=== PATIENT | male | born 1965 | race Caucasian/White ===

== ENCOUNTER 2018-06-25 10:09 | Emergency (ER) | payer OTHER ==
[~2018-06-25] VITALS: Ht 172.7 cm; Wt 81.7 kg
[~2018-06-25 10:09] MED LIST: ALBU90OI INH; BUSP5 PO; Bactrim Ds Tab1 EACH PO; Effexor Xr150 MG PO; Keflex500 MG PO; MIRT15ST; NAPR500EC; Prednisone20 MG PO; Ultram50 MG PO; VENL25 PO
[2018-06-25] MEDS ORDERED: ESCI20 PO (10:23)
[2018-06-25] MEDS ORDERED: ZOLP5 PO (10:23)
[2018-06-25] MEDS ORDERED: BANOPHEN PO (10:24)
[2018-06-25] MEDS ORDERED: KETO10 PO (11:28)
[2018-06-25] MEDS ORDERED: Ultram50 MG PO (11:28)
[2018-06-25] MEDS ORDERED: Robaxin-750750 MG PO (11:28)
== END 2018-06-25 11:35 | disposition home or self-care (01) ==
LOC: ER 10:09
DX: M62.830 Muscle spasm of back (principal); Z79.899 Other long term (current) drug therapy; F32.9 Major depressive disorder, single episode, unspecified; F41.9 Anxiety disorder, unspecified; F17.210 Nicotine dependence, cigarettes, uncomplicated
CPT/HCPCS: 72040; 73030; 96372; 99283-25; J1885

== ENCOUNTER 2018-11-15 15:19 | Emergency (ER) | payer OTHER ==
[~2018-11-15] VITALS: Ht 172.7 cm; Wt 78.0 kg
[~2018-11-15 15:19] MED LIST changes: +BANOPHEN PO; +ESCI20 PO; +KETO10 PO; +Robaxin-750750 MG PO; +ZOLP5 PO
[2018-11-15] MEDS ORDERED: AMLO10 PO (15:24)
[2018-11-15] MEDS ORDERED: VENL37.5 (15:24)
[2018-11-15] MEDS ORDERED: Norco 5-325 Ta1 EACH PO (16:28)
== END 2018-11-15 16:41 | disposition home or self-care (01) ==
LOC: ER 15:19
DX: S62.142A Displaced fracture of body of hamate [unciform] bone, left wrist, initial encounter for closed fracture (principal); F41.9 Anxiety disorder, unspecified; F32.9 Major depressive disorder, single episode, unspecified; Z79.899 Other long term (current) drug therapy; F17.210 Nicotine dependence, cigarettes, uncomplicated; W07.XXXA Fall from chair, initial encounter
CPT/HCPCS: 29125; 73110; 99283-25; A9270-GY

== ENCOUNTER 2020-07-19 11:20 | Emergency (ER) | payer OTHER ==
[~2020-07-19] VITALS: Ht 172.7 cm; Wt 88.5 kg
[~2020-07-19 11:20] MED LIST changes: +AMLO10 PO; +Norco 5-325 Ta1 EACH PO; +VENL37.5
[2020-07-19 11:57] LABS: BASOPHILS ABSOLUTE AUTO 0.05 K/mm3 (0.00-0.23); BASOPHILS PERCENT AUTO 1 % (0-2); EOSINOPHILS PERCENT AUTO 2 % (0-6); Hematocrit 42.8 % (37.0-53.0); Hemoglobin 14.7 g/dL (13.5-17.5); IMMATURE GRAN ABSOLUTE AUTO 0.02 K/mm3 (0.00-0.10); IMMATURE GRAN PERCENT AUTO 0 % (0-1); LYMPHOCYTES ABSOLUTE AUTO 1.02 K/mm3 (0.84-5.20); LYMPHOCYTES PERCENT AUTO 17 % (21-46); MONOCYTES ABSOLUTE AUTO 0.74 K/mm3 (0.16-1.47); MONOCYTES PERCENT AUTO 12 % (4-13); Mean Corpuscular HGB Conc 34.3 g/dL (31.5-36.5); Mean Corpuscular Volume 99 fL (80-100); Mean Platelet Volume 9.4 fL (9.1-12.4); NEUTROPHILS ABSOLUTE AUTO 4.09 K/mm3 (1.96-9.15); NEUTROPHILS PERCENT AUTO 68 % (41-73); Platelet Count 181 K/mm3 (150-400); RDW Coefficient Variation 12.3 % (11.7-14.2); RDW Standard Deviation 44.7 fL (35.1-46.3); Red Blood Cell Count 4.32 M/mm3 (4.30-5.90); White Blood Cell Count 6.02 K/mm3 (4.00-11.30)
[2020-07-19 12:16] LABS: Alanine Aminotransfer (ALT/SGP 75 U/L (12-78); Albumin, Blood 3.5 g/dL (3.4-5.0); Albumin/Globulin Ratio 0.7 (0.8-1.8); Alk Phos 100 U/L (50-136); Anion Gap 7 mmol/L (6-16); Aspartate Aminotrans (AST/SGOT 72 U/L (12-37); Bilirubin, Total 0.9 mg/dL (0.1-1.0); Blood Urea Nitrogen 8 mg/dL (8-24); Bun/Creatinine Ratio 10.6 (12.0-20.0); CO2, Blood 24 mmol/L (21-32); Chloride, Blood 101 mmol/L (98-108); Creatinine, Blood 0.75 mg/dL (0.60-1.20); Glomerular Filtration Rate >60 (60-); Glucose, Blood 290 mg/dL (70-99); Potassium, Blood 4.2 mmol/L (3.5-5.5); Sodium, Blood 132 mmol/L (136-145); Total Protein, Blood 8.5 g/dL (6.4-8.2)
[2020-07-19] MEDS ORDERED: CEPH500 PO (13:58)
== END 2020-07-19 14:13 | disposition home or self-care (01) ==
LOC: ER 11:20
PROVIDERS: Emergency Medicine
DX: L03.116 Cellulitis of left lower limb (principal); L03.115 Cellulitis of right lower limb; L97.829 Non-pressure chronic ulcer of other part of left lower leg with unspecified severity; F17.210 Nicotine dependence, cigarettes, uncomplicated; Z79.899 Other long term (current) drug therapy
CPT/HCPCS: 36415; 80053; 83036; 83605; 85025; 96365; 99283-25; J0690; J7030

== ENCOUNTER 2020-08-03 11:31 | Inpatient (IN) | payer OTHER ==
[~2020-08-03] VITALS: Ht 172.7 cm; Wt 91.0 kg
[~2020-08-03 11:31] MED LIST changes: +CEPH500 PO; -VENL37.5; +VENL75ER PO
[2020-08-03 12:57] LABS: BASOPHILS ABSOLUTE AUTO 0.03 K/mm3 (0.00-0.23); BASOPHILS PERCENT AUTO 1 % (0-2); EOSINOPHILS ABSOLUTE AUTO 0.04 K/mm3 (0.00-0.68); EOSINOPHILS PERCENT AUTO 1 % (0-6); Hematocrit 40.8 % (37.0-53.0); IMMATURE GRAN ABSOLUTE AUTO 0.02 K/mm3 (0.00-0.10); IMMATURE GRAN PERCENT AUTO 1 % (0-1); LYMPHOCYTES ABSOLUTE AUTO 0.73 K/mm3 (0.84-5.20); LYMPHOCYTES PERCENT AUTO 17 % (21-46); MONOCYTES ABSOLUTE AUTO 0.38 K/mm3 (0.16-1.47); MONOCYTES PERCENT AUTO 9 % (4-13); Mean Corpuscular HGB 33.1 pg (26.0-34.0); Mean Corpuscular HGB Conc 34.3 g/dL (31.5-36.5); Mean Corpuscular Volume 97 fL (80-100); Mean Platelet Volume 8.9 fL (9.1-12.4); NEUTROPHILS ABSOLUTE AUTO 3.04 K/mm3 (1.96-9.15); NEUTROPHILS PERCENT AUTO 72 % (41-73); Platelet Count 186 K/mm3 (150-400); RDW Coefficient Variation 12.2 % (11.7-14.2); RDW Standard Deviation 43.1 fL (35.1-46.3); Red Blood Cell Count 4.23 M/mm3 (4.30-5.90); White Blood Cell Count 4.24 K/mm3 (4.00-11.30)
[2020-08-03 13:25] LABS: Alanine Aminotransfer (ALT/SGP 40 U/L (12-78); Albumin, Blood 3.4 g/dL (3.4-5.0); Albumin/Globulin Ratio 0.7 (0.8-1.8); Alk Phos 99 U/L (50-136); Anion Gap 6 mmol/L (6-16); Aspartate Aminotrans (AST/SGOT 38 U/L (12-37); Blood Urea Nitrogen 16 mg/dL (8-24); Bun/Creatinine Ratio 18.7 (12.0-20.0); CO2, Blood 30 mmol/L (21-32); Calcium, Blood 8.9 mg/dL (8.5-10.1); Chloride, Blood 94 mmol/L (98-108); Creatinine, Blood 0.86 mg/dL (0.60-1.20); Globulin, Blood 4.9 g/dL (2.2-4.0); Glomerular Filtration Rate >60 (60-); Glucose, Blood 204 mg/dL (70-99); Potassium, Blood 3.5 mmol/L (3.5-5.5); Sodium, Blood 130 mmol/L (136-145); Total Protein, Blood 8.3 g/dL (6.4-8.2)
[2020-08-03] MEDS ORDERED: ZOLPIDEM TARTRA10 MG PO (14:08)
[2020-08-03] MEDS ORDERED: Ventolin/Prove6.7 GM INH (14:09)
[2020-08-03] MEDS ORDERED: OLANZAPINE PO (14:10)
[2020-08-03] MEDS ORDERED: IBU800 M1 PO (14:11)
[2020-08-03] MEDS ORDERED: CYCL10 PO (15:11)
--- NOTE | 2020-08-03 15:32 | NUR ---
SBAR REPORT FROM TARIQ BENITEZ RN. ROOM NOT YET CLEAN.
[2020-08-03 18:15] LABS: U Amphetamine Screen Not Detected; U Barbituate Screen Not Detected; U Benzodiazapine Screen Not Detected; U Buprenorphine Screen Not Detected; U Cannabinoids Screen Not Detected; U Cocaine Screen Not Detected; U Methadone Screen Not Detected; U Methamphetamine Screen Not Detected; U Opiates Screen DETECTED; U Oxycodone Screen Not Detected; U Phencyclidine Screen Not Detected; U Propoxyphene Screen Not Detected
--- NOTE | 2020-08-03 22:02 | NUR ---
ASSUMED CARE: AOX3, INDEPENDENT. LUNG SOUNDS CLEAR. HR SINUS. NO PAIN AT THIS TIME. NO NAUSEA. DRESSING TO BILATERAL SHINS IS CDI. VSS/AFEBRILE. IVF INFUSING. MEDICATED PER EMAR. FAIR APPETITE. STATES HE DOES GET SHOOTING PAIN FROM THE WOUNDS AT NIGHT THAT SOMETIMES KEEPS HIM AWAKE. ADMINISTERED INSULIN FOR BLOOD SUGAR IN THE HIGH 100'S. WILL CONTINUE TO MONITOR, CALL LIGHT IN REACH.
--- NOTE | 2020-08-04 06:22 | NUR ---
SHIFT SUMMARY: AOX3, INDEPENDENT. PAIN TO BLE R/T WOUNDS ON ANTERIOR CALFS. DRESSINGS REMAINED INTACT AND CLEAN. BS 190, MEDICATED WITH INSULIN. IVF INFUSED T/O NIGHT. SURGICAL CONSULT CALLED INTO DR. AVERY PER ANSWERING SERVICE. NO NAUSEA. VSS/AFEBRILE. 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 DOES GET SHOOTING THROBBING PAIN OFF AND ON. SLEPT WELL T/O NIGHT. CULTURES ON WOUND AND MRSA SWAB STILL PENDING. CIWA AVERAGE 1-2 WITH JUST SMALL AMOUNTS OF TREMORS. WILL REPORT TO DAYSHIFT. CALL LIGHT IN REACH.
[2020-08-04 06:59] LABS: BASOPHILS ABSOLUTE AUTO 0.04 K/mm3 (0.00-0.23); BASOPHILS PERCENT AUTO 1 % (0-2); EOSINOPHILS ABSOLUTE AUTO 0.12 K/mm3 (0.00-0.68); EOSINOPHILS PERCENT AUTO 3 % (0-6); Hemoglobin 13.2 g/dL (13.5-17.5); IMMATURE GRAN ABSOLUTE AUTO 0.02 K/mm3 (0.00-0.10); IMMATURE GRAN PERCENT AUTO 0 % (0-1); LYMPHOCYTES ABSOLUTE AUTO 0.97 K/mm3 (0.84-5.20); LYMPHOCYTES PERCENT AUTO 22 % (21-46); MONOCYTES ABSOLUTE AUTO 0.42 K/mm3 (0.16-1.47); MONOCYTES PERCENT AUTO 9 % (4-13); Mean Corpuscular HGB 32.7 pg (26.0-34.0); Mean Corpuscular Volume 99 fL (80-100); Mean Platelet Volume 9.4 fL (9.1-12.4); NEUTROPHILS PERCENT AUTO 65 % (41-73); Platelet Count 176 K/mm3 (150-400); RDW Coefficient Variation 12.3 % (11.7-14.2); RDW Standard Deviation 44.7 fL (35.1-46.3); Red Blood Cell Count 4.04 M/mm3 (4.30-5.90); White Blood Cell Count 4.47 K/mm3 (4.00-11.30)
[2020-08-04 07:50] LABS: Alanine Aminotransfer (ALT/SGP 37 U/L (12-78); Albumin, Blood 3.1 g/dL (3.4-5.0); Albumin/Globulin Ratio 0.7 (0.8-1.8); Alk Phos 88 U/L (50-136); Anion Gap 7 mmol/L (6-16); Aspartate Aminotrans (AST/SGOT 34 U/L (12-37); Bilirubin, Total 0.7 mg/dL (0.1-1.0); Blood Urea Nitrogen 15 mg/dL (8-24); Bun/Creatinine Ratio 18.2 (12.0-20.0); CO2, Blood 25 mmol/L (21-32); Calcium, Blood 8.5 mg/dL (8.5-10.1); Chloride, Blood 101 mmol/L (98-108); Creatinine, Blood 0.83 mg/dL (0.60-1.20); Globulin, Blood 4.4 g/dL (2.2-4.0); Glomerular Filtration Rate >60 (60-); Glucose, Blood 168 mg/dL (70-99); Magnesium, Blood 1.9 mg/dL (1.6-2.4); Potassium, Blood 3.9 mmol/L (3.5-5.5); Sodium, Blood 133 mmol/L (136-145); Total Protein, Blood 7.5 g/dL (6.4-8.2)
[2020-08-04 11:30] LABS: SARS-Cov-2 (COVID-19) PCR, MMC NEGATIVE (NEGATIVE)
--- NOTE | 2020-08-04 15:11 | NUR ---
History, Chart, Medications and Allergies reviewed before start of procedure. Lungs clear T/O to Auscultation. Pre-Op teaching done. Pt verbalizes understanding. PT BEEN NPO SINCE 0800. SURGEON AND ANESTHESIOLOGIST NOTIFIED.
--- NOTE | 2020-08-04 18:25 | NUR ---
SHIFT SUMMARY PT AOX4; CALLS APPROPRIATELY. PT HAD A DEBRIBEMENT OF HIS BLE AFTER LUNCH TIME. PT VERY PAINFUL; MEDICATED PER EMAR. PT REFUSED TO PUT BACK THE FLUID/NS THIS AFTERNOON AND REFUSED FOR A NEW IV THIS AM. ENCOURAGE FLUIDS PO. BED IS IN THE LOWEST POSITION AND CALL LIGHT WITHIN REACH
--- NOTE | 2020-08-05 04:55 | NUR ---
SHIFT SUMMARY PT VERY PAINFUL AT START OF SHIFT. STATING THAT HIS BLE'S ALSO FELT VERY "STIFF". MEDICATED W/ PERCOCET 2 TABS WITH GOOD EFFECT. DRESSINGS TO BLE'S REMAINED C/D/I THROUGHOUT THE NIGHT. PT SLEPT MOST OF THE NIGHT. ONLY GETTING UP TO VOID. PT AFEBRILE. VSS. NO ACUTE CHANGES THIS SHIFT. WILL CONTINUE TO MONITOR.
[2020-08-05 05:45] LABS: BASOPHILS ABSOLUTE AUTO 0.04 K/mm3 (0.00-0.23); BASOPHILS PERCENT AUTO 1 % (0-2); EOSINOPHILS ABSOLUTE AUTO 0.13 K/mm3 (0.00-0.68); EOSINOPHILS PERCENT AUTO 4 % (0-6); Hematocrit 38.4 % (37.0-53.0); Hemoglobin 12.9 g/dL (13.5-17.5); IMMATURE GRAN ABSOLUTE AUTO 0.01 K/mm3 (0.00-0.10); IMMATURE GRAN PERCENT AUTO 0 % (0-1); LYMPHOCYTES ABSOLUTE AUTO 0.88 K/mm3 (0.84-5.20); LYMPHOCYTES PERCENT AUTO 24 % (21-46); MONOCYTES ABSOLUTE AUTO 0.39 K/mm3 (0.16-1.47); MONOCYTES PERCENT AUTO 11 % (4-13); Mean Corpuscular HGB 32.9 pg (26.0-34.0); Mean Corpuscular HGB Conc 33.6 g/dL (31.5-36.5); Mean Corpuscular Volume 98 fL (80-100); Mean Platelet Volume 9.3 fL (9.1-12.4); NEUTROPHILS ABSOLUTE AUTO 2.15 K/mm3 (1.96-9.15); NEUTROPHILS PERCENT AUTO 60 % (41-73); Platelet Count 156 K/mm3 (150-400); RDW Coefficient Variation 12.3 % (11.7-14.2); Red Blood Cell Count 3.92 M/mm3 (4.30-5.90)
[2020-08-05 06:06] LABS: Anion Gap 6 mmol/L (6-16); Blood Urea Nitrogen 12 mg/dL (8-24); Bun/Creatinine Ratio 14.1 (12.0-20.0); CO2, Blood 27 mmol/L (21-32); Calcium, Blood 8.7 mg/dL (8.5-10.1); Chloride, Blood 104 mmol/L (98-108); Creatinine, Blood 0.85 mg/dL (0.60-1.20); Glomerular Filtration Rate >60 (60-); Glucose, Blood 133 mg/dL (70-99); Potassium, Blood 3.8 mmol/L (3.5-5.5); Sodium, Blood 137 mmol/L (136-145)
[2020-08-05] MEDS ORDERED: METF500 PO (14:21)
[2020-08-05] MEDS ORDERED: OXYACE7.5T PO (14:22)
[2020-08-05] MEDS ORDERED: VISBIOME 112.51 EACH PO (14:23)
[2020-08-05] MEDS ORDERED: BASAGLAR K100 UNIT/1 SC (14:25)
[2020-08-05] MEDS ORDERED: CLIN150 PO (14:28)
[2020-08-05] MEDS ORDERED: Acetaminophen325 M1 PO (14:31)
--- NOTE | 2020-08-05 16:52 | NUR ---
PT AAOX4. PLEASANT AND COOPERATIVE WITH CARE. PAIN TO BLE SURGICAL SITE WELL CONTROLLED WITH PAIN REGIMEN. BL DRESSING CHANGED EXTRA DRESSING SENT HOME WITH PT ON DC. IV REMOVED ON DC WNL. NEW MEDICATIONS APPT AND DISCHARGE INSTUCTIONS REVIEWED WITH PT. DM EDUCATION REINFORCED. PT IS ABLE TO TEACH BACK INSULIN ADMINISTRATION AND SITES. WOUND CARE INSTUCTIONS REVIEWED PT ABLE TO TEACH BACK. S/S OF WORSTENING INFECTION AND WHEN TO SEEK HELP REVIEWED. PT VERBAIZED UNDERSTANDING. PT DISCHARGED TO HOME
== END 2020-08-05 16:12 | disposition home or self-care (01) | DRG 622 ==
LOC: ER 11:31 → MEDS 11:32
PROVIDERS: Nurse Practitioner Acute Care; Physician Assistant; Surgery; ADMIT Internal Medicine
PROC: 0JBN0ZZ Excision of Right Lower Leg Subcutaneous Tissue and Fascia, Open Approach (ICD-10-PCS; 2020-08-04)
PROC: 0JBP0ZZ Excision of Left Lower Leg Subcutaneous Tissue and Fascia, Open Approach (ICD-10-PCS; principal; 2020-08-04 16:00)
DX: E11.628 Type 2 diabetes mellitus with other skin complications (principal); L89.893 Pressure ulcer of other site, stage 3; L03.115 Cellulitis of right lower limb; L03.116 Cellulitis of left lower limb; I10 Essential (primary) hypertension; Z20.822 Contact with and (suspected) exposure to COVID-19; E11.9 Type 2 diabetes mellitus without complications; F41.9 Anxiety disorder, unspecified; F32.9 Major depressive disorder, single episode, unspecified; F10.20 Alcohol dependence, uncomplicated; B95.62 Methicillin resistant Staphylococcus aureus infection as the cause of diseases classified elsewhere; F17.210 Nicotine dependence, cigarettes, uncomplicated; Z79.899 Other long term (current) drug therapy; B19.20 Unspecified viral hepatitis C without hepatic coma
CPT/HCPCS: 36415; 80048; 80053; 82947; 83735; 84443; 85025; 87040; 87070; 87075; 87077; 87147; 87186; 87205; 93005; 93010; 93922; 94760; 96365; 96375; 97161; 97166; 97535; 99285-25; A9270; G0378; G0463; J0690; J1170; J1644; J2250; J2405; J2550; J2704; J3010; J3370; J3475; J7030; J7050; J7120; U0004

== ENCOUNTER 2020-08-10 03:37 | Day surgery (SDC) | payer OTHER ==
[~2020-08-10 03:37] MED LIST changes: +Acetaminophen325 M1 PO; +BASAGLAR K100 UNIT/1 SC; +CLIN150 PO; +CYCL10 PO; +IBU800 M1 PO; +METF500 PO; +OLANZAPINE PO; +OXYACE7.5T PO; +VISBIOME 112.51 EACH PO; +Ventolin/Prove6.7 GM INH; +ZOLPIDEM TARTRA10 MG PO
== END 2020-08-10 23:08 | disposition home or self-care (01) ==
LOC: WOUND 03:37
DX: S81.801D Unspecified open wound, right lower leg, subsequent encounter (principal); S81.802D Unspecified open wound, left lower leg, subsequent encounter; X58.XXXD Exposure to other specified factors, subsequent encounter; E11.622 Type 2 diabetes mellitus with other skin ulcer; L97.212 Non-pressure chronic ulcer of right calf with fat layer exposed; L97.222 Non-pressure chronic ulcer of left calf with fat layer exposed; L03.116 Cellulitis of left lower limb; L03.115 Cellulitis of right lower limb; F17.290 Nicotine dependence, other tobacco product, uncomplicated; B18.2 Chronic viral hepatitis C
CPT/HCPCS: G0463

== ENCOUNTER 2020-08-17 03:05 | Day surgery (SDC) | payer OTHER | END 2020-08-17 23:16 | disposition home or self-care (01) | LOC: WOUND 03:05 | DX: S81.801D Unspecified open wound, right lower leg, subsequent encounter (principal); S81.802D Unspecified open wound, left lower leg, subsequent encounter; X58.XXXD Exposure to other specified factors, subsequent encounter; E11.622 Type 2 diabetes mellitus with other skin ulcer; L97.212 Non-pressure chronic ulcer of right calf with fat layer exposed; L97.222 Non-pressure chronic ulcer of left calf with fat layer exposed; L03.116 Cellulitis of left lower limb; L03.115 Cellulitis of right lower limb; B18.2 Chronic viral hepatitis C; F17.290 Nicotine dependence, other tobacco product, uncomplicated | CPT/HCPCS: A9270; G0463 ==

== ENCOUNTER 2020-08-31 02:20 | Day surgery (SDC) | payer OTHER | END 2020-08-31 22:54 | disposition home or self-care (01) | LOC: WOUND 02:20 | DX: S81.801D Unspecified open wound, right lower leg, subsequent encounter (principal); S81.802D Unspecified open wound, left lower leg, subsequent encounter; X58.XXXD Exposure to other specified factors, subsequent encounter; E11.622 Type 2 diabetes mellitus with other skin ulcer; L97.212 Non-pressure chronic ulcer of right calf with fat layer exposed; L97.222 Non-pressure chronic ulcer of left calf with fat layer exposed; L03.116 Cellulitis of left lower limb; L03.115 Cellulitis of right lower limb; B18.2 Chronic viral hepatitis C; F17.290 Nicotine dependence, other tobacco product, uncomplicated | CPT/HCPCS: A9270; G0463 ==

== ENCOUNTER 2020-09-14 04:43 | Day surgery (SDC) | payer OTHER | END 2020-09-14 23:14 | disposition home or self-care (01) | LOC: WOUND 04:43 | DX: E11.622 Type 2 diabetes mellitus with other skin ulcer (principal); L97.212 Non-pressure chronic ulcer of right calf with fat layer exposed; L97.222 Non-pressure chronic ulcer of left calf with fat layer exposed; S81.801D Unspecified open wound, right lower leg, subsequent encounter; S81.802D Unspecified open wound, left lower leg, subsequent encounter; X58.XXXD Exposure to other specified factors, subsequent encounter; L03.116 Cellulitis of left lower limb; F17.290 Nicotine dependence, other tobacco product, uncomplicated; B18.2 Chronic viral hepatitis C; L03.115 Cellulitis of right lower limb | CPT/HCPCS: A9270; G0463 ==

== ENCOUNTER 2020-10-05 00:58 | Day surgery (SDC) | payer OTHER | END 2020-10-05 23:30 | disposition home or self-care (01) | LOC: WOUND 00:58 | DX: L03.115 Cellulitis of right lower limb (principal); L03.116 Cellulitis of left lower limb; S81.801D Unspecified open wound, right lower leg, subsequent encounter; S81.802D Unspecified open wound, left lower leg, subsequent encounter; X58.XXXD Exposure to other specified factors, subsequent encounter; E11.622 Type 2 diabetes mellitus with other skin ulcer; L97.212 Non-pressure chronic ulcer of right calf with fat layer exposed; L97.222 Non-pressure chronic ulcer of left calf with fat layer exposed; F17.290 Nicotine dependence, other tobacco product, uncomplicated; B18.2 Chronic viral hepatitis C | CPT/HCPCS: A9270 ==

== ENCOUNTER 2020-11-02 02:41 | Day surgery (SDC) | payer OTHER | END 2020-11-02 23:33 | disposition home or self-care (01) | LOC: WOUND 02:41 | DX: L03.115 Cellulitis of right lower limb (principal); L03.116 Cellulitis of left lower limb; E11.622 Type 2 diabetes mellitus with other skin ulcer; L97.212 Non-pressure chronic ulcer of right calf with fat layer exposed; L97.222 Non-pressure chronic ulcer of left calf with fat layer exposed; S81.801D Unspecified open wound, right lower leg, subsequent encounter; S81.802D Unspecified open wound, left lower leg, subsequent encounter; X58.XXXD Exposure to other specified factors, subsequent encounter; F17.290 Nicotine dependence, other tobacco product, uncomplicated; B18.2 Chronic viral hepatitis C | CPT/HCPCS: A9270; G0463 ==

== ENCOUNTER 2020-11-16 00:42 | Day surgery (SDC) | payer OTHER | END 2020-11-16 22:54 | disposition home or self-care (01) | LOC: WOUND 00:42 | DX: S81.801D Unspecified open wound, right lower leg, subsequent encounter (principal); S81.802D Unspecified open wound, left lower leg, subsequent encounter; W01.0XXD Fall on same level from slipping, tripping and stumbling without subsequent striking against object, subsequent encounter; E11.9 Type 2 diabetes mellitus without complications; B18.2 Chronic viral hepatitis C; F17.290 Nicotine dependence, other tobacco product, uncomplicated | CPT/HCPCS: A9270; G0463 ==

== ENCOUNTER → 2020-12-17 | Outpatient (CLI) | payer OTHER | END | disposition home or self-care (01) | LOC: LAB SHORT 11:32 → LAB 11:32 | DX: N28.9 Disorder of kidney and ureter, unspecified (principal) | CPT/HCPCS: 82043 ==

== ENCOUNTER 2021-03-07 09:24 | Day surgery (SDC) | payer OTHER | END 2021-03-07 22:53 | disposition home or self-care (01) | LOC: WOUND 09:24 | DX: E11.622 Type 2 diabetes mellitus with other skin ulcer (principal); L97.812 Non-pressure chronic ulcer of other part of right lower leg with fat layer exposed; E11.621 Type 2 diabetes mellitus with foot ulcer; E11.59 Type 2 diabetes mellitus with other circulatory complications; F17.210 Nicotine dependence, cigarettes, uncomplicated | CPT/HCPCS: A9270 ==

== ENCOUNTER 2021-03-14 03:55 | Day surgery (SDC) | payer OTHER | END 2021-03-14 22:45 | disposition home or self-care (01) | LOC: WOUND 03:55 | DX: E11.621 Type 2 diabetes mellitus with foot ulcer (principal); L97.509 Non-pressure chronic ulcer of other part of unspecified foot with unspecified severity; E11.59 Type 2 diabetes mellitus with other circulatory complications; E11.51 Type 2 diabetes mellitus with diabetic peripheral angiopathy without gangrene | CPT/HCPCS: G0463 ==

== ENCOUNTER 2021-03-28 01:09 | Day surgery (SDC) | payer OTHER | END 2021-03-28 23:22 | disposition home or self-care (01) | LOC: WOUND 01:09 | DX: E11.622 Type 2 diabetes mellitus with other skin ulcer (principal); L97.812 Non-pressure chronic ulcer of other part of right lower leg with fat layer exposed; E11.59 Type 2 diabetes mellitus with other circulatory complications; I10 Essential (primary) hypertension | CPT/HCPCS: A9270; G0463 ==

== ENCOUNTER 2021-04-19 08:34 | Day surgery (SDC) | payer OTHER | END 2021-04-19 23:23 | disposition home or self-care (01) | LOC: WOUND 08:34 | DX: Z09 Encounter for follow-up examination after completed treatment for conditions other than malignant neoplasm (principal); E11.9 Type 2 diabetes mellitus without complications; Z86.31 Personal history of diabetic foot ulcer | CPT/HCPCS: A9270; G0463 ==

== ENCOUNTER 2022-01-08 01:51 | Emergency (ER) | payer OTHER ==
[~2022-01-08] VITALS: Ht 172.7 cm; Wt 86.2 kg
[2022-01-08] MEDS ORDERED: Prinivil10 MG PO (02:09)
[2022-01-08] MEDS ORDERED: TAMSULOSIN HCL0.4 M1 PO (02:10)
== END 2022-01-08 04:13 | disposition home or self-care (01) ==
LOC: ER 01:51
DX: U07.1 COVID-19 (principal); I10 Essential (primary) hypertension; E11.9 Type 2 diabetes mellitus without complications; J45.909 Unspecified asthma, uncomplicated; F17.210 Nicotine dependence, cigarettes, uncomplicated; Z79.899 Other long term (current) drug therapy; Z79.4 Long term (current) use of insulin
CPT/HCPCS: 71045; 99283-25; M0222

== ENCOUNTER 2022-02-12 11:46 | Emergency (ER) | payer OTHER ==
[~2022-02-12] VITALS: Ht 172.7 cm; Wt 81.7 kg
[~2022-02-12 11:46] MED LIST changes: +Prinivil10 MG PO; +TAMSULOSIN HCL0.4 M1 PO
[2022-02-13] MEDS ORDERED: DOXA4 PO (16:15)
[2022-02-13] MEDS ORDERED: MAVYRET 100-401 EAC1 PO (16:18)
== END 2022-02-12 13:02 | disposition home or self-care (01) ==
LOC: ER 11:46
DX: M25.552 Pain in left hip (principal); I10 Essential (primary) hypertension; E11.9 Type 2 diabetes mellitus without complications; F17.210 Nicotine dependence, cigarettes, uncomplicated; W10.9XXA Fall (on) (from) unspecified stairs and steps, initial encounter; Z79.899 Other long term (current) drug therapy; Z79.4 Long term (current) use of insulin
CPT/HCPCS: 73502

== ENCOUNTER 2022-02-13 11:42 | Inpatient (IN) | payer OTHER ==
[~2022-02-13] VITALS: Ht 172.7 cm; Wt 81.7 kg
[2022-02-13 13:12] LABS: BASOPHILS ABSOLUTE AUTO 0.03 K/mm3 (0.00-0.23); BASOPHILS PERCENT AUTO 1 % (0-2); EOSINOPHILS ABSOLUTE AUTO 0.05 K/mm3 (0.00-0.68); EOSINOPHILS PERCENT AUTO 1 % (0-6); Hematocrit 37.7 % (37.0-53.0); Hemoglobin 12.8 g/dL (13.5-17.5); IMMATURE GRAN ABSOLUTE AUTO 0.01 K/mm3 (0.00-0.10); IMMATURE GRAN PERCENT AUTO 0 % (0-1); LYMPHOCYTES ABSOLUTE AUTO 0.53 K/mm3 (0.84-5.20); LYMPHOCYTES PERCENT AUTO 11 % (21-46); MONOCYTES ABSOLUTE AUTO 0.29 K/mm3 (0.16-1.47); MONOCYTES PERCENT AUTO 6 % (4-13); Mean Corpuscular HGB 33.7 pg (26.0-34.0); Mean Corpuscular Volume 99 fL (80-100); NEUTROPHILS ABSOLUTE AUTO 3.86 K/mm3 (1.96-9.15); NEUTROPHILS PERCENT AUTO 81 % (41-73); Platelet Count 179 K/mm3 (150-400); RDW Coefficient Variation 12.9 % (11.7-14.2); RDW Standard Deviation 46.8 fL (35.1-46.3); White Blood Cell Count 4.77 K/mm3 (4.00-11.30)
[2022-02-13 13:31] LABS: Albumin, Blood 3.7 g/dL (3.4-5.0); Albumin/Globulin Ratio 0.8 (0.8-1.8); Bilirubin, Total 0.5 mg/dL (0.1-1.0); Bun/Creatinine Ratio 17.5 (12.0-20.0); Calcium, Blood 8.9 mg/dL (8.5-10.1); Creatinine, Blood 1.26 mg/dL (0.60-1.20); Globulin, Blood 4.5 g/dL (2.2-4.0); Potassium, Blood 4.4 mmol/L (3.5-5.5); Total Protein, Blood 8.2 g/dL (6.4-8.2)
[2022-02-13] MEDS ORDERED: DOXA4 PO (16:15)
[2022-02-13] MEDS ORDERED: MAVYRET 100-401 EAC1 PO (16:18)
--- NOTE | 2022-02-13 19:38 | NUR ---
SHIFT SUMMARY: PT A/O X 4 BEDREST, PLEASANT AND COOPERATIVE. PT HAD PAIN TO L HIP ON ARRIVAL AND OXYCODONE WAS NOT EFFECTIVE IN TREATING. ORDER WAS RECEIVED FOR FENTANYL 25 MCG Q4 PRN. HE RECEIVED ONE DOSE WHICH HE REPORTED WAS EFFECTIVE IN TREATING HIS PAIN AND HAS HAD NO FURTHER COMPLAINTS. PT EDUCATED ON HIP PRECAUTIONS HOWEVER HE HAS NOT BEEN COMPLIANT IN KEEPING LEG STRAIGHT. PT OFTEN FOUND WITH LEGS CROSSED OR LEGS DRAWN UP WITH KNEES BENT. PT DENIES DISCOMFORT FROM HAVING HIS LEG IN THESE POSITIONS. BLOOD SUGARS ARE WITHIN NORMAL LIMITS. PT TO BE NPO AT MIDNIGHT. DR. CLAY ROUNDED THIS EVENING AND PLANS TO DO A TOTAL HIP REPLACEMENT INSTEAD OF REPAIR. PT AWARE. PT CURRENTLY HAS IV NS RUNNING AT 75 ML/HOUR PER ORDER.
--- NOTE | 2022-02-14 07:34 | NUR ---
SHIFT SUMMARY A&O X 4. VSS. C/O PAIN 10/02. PAIN MANAGED WITH IV FENTANYL, TOLERATING WELL. PT HAD SANDWICH AND PUTTING BEFORE MIDNIGHT. PT THEN NPO AT MIDNIGHT. PT TO HAVE LEFT HIP SURGERY IN THE AM. ON BEDREST. WILL CONTINUE WITH PLAN OF CARE.
--- NOTE | 2022-02-14 12:20 | NUR ---
PT TRANSFERRED TO DAYSURGERY FROM FLOOR VIA BED. PT BELONGINGS LEFT IN ROOM EXCEPT CONTACT LENSES. CONTACT LENSES BROUGHT TO PACU FOR SAFEKEEPING.
--- NOTE | 2022-02-14 13:59 | NUR ---
PT TO GO TO ROOM 223 POST SURGERY. REPORT GIVEN TO CLEMENTE MONROE. PT BELONGINGS SENT TO PT NEW ROOM.
--- NOTE | 2022-02-14 16:45 | NUR ---
POST OP ARRIVED FROM PACU VIA BED, AWAKE BUT DROWSY, A&O X4, REPORTS HAVING SOME PAIN ON R HIP PT FELL BACK ASLEEP, LUNGS CLEAR T/O, DIM AT BASES, HRR, ACTIVE BT'S X4, DENIES ANY NUMBNESS OR TINGLING, L ANTERIOR HIP W/ AQUACEL DSG, C/D/I, ARLETTE'S AND PAS IN PLACE, CONT. TO MONITOR VS AND ANY CHANGES.
[2022-02-14] MEDS ORDERED: GABA300 PO (21:10)
--- NOTE | 2022-02-15 04:14 | NUR ---
SHIFT SUMMARY PT RESTED WELL T/O SHIFT. AQUACEL DRESSING TO LEFT HIP REMAINS CDI WITH POLAR PACK IN PLACE. 2 ROXICODONE/TYLENOL/TORADOL FOR PAIN MANAGEMENT. UP WITH 1 SBA USING FWW/GB TO BRP. PLAN FOR PT TO DISCHARGE HOME TODAY AFTER THERAPY. CALL LIGHT WITHIN REACH.
[2022-02-15 04:43] LABS: BASOPHILS ABSOLUTE AUTO 0.01 K/mm3 (0.00-0.23); BASOPHILS PERCENT AUTO 0 % (0-2); EOSINOPHILS PERCENT AUTO 0 % (0-6); Hematocrit 29.7 % (37.0-53.0); Hemoglobin 9.6 g/dL (13.5-17.5); IMMATURE GRAN ABSOLUTE AUTO 0.03 K/mm3 (0.00-0.10); IMMATURE GRAN PERCENT AUTO 0 % (0-1); LYMPHOCYTES PERCENT AUTO 4 % (21-46); MONOCYTES ABSOLUTE AUTO 0.34 K/mm3 (0.16-1.47); MONOCYTES PERCENT AUTO 4 % (4-13); Mean Corpuscular HGB 32.5 pg (26.0-34.0); Mean Corpuscular HGB Conc 32.3 g/dL (31.5-36.5); Mean Corpuscular Volume 101 fL (80-100); Mean Platelet Volume 9.4 fL (9.1-12.4); NEUTROPHILS ABSOLUTE AUTO 7.37 K/mm3 (1.96-9.15); NEUTROPHILS PERCENT AUTO 92 % (41-73); Platelet Count 153 K/mm3 (150-400); RDW Coefficient Variation 12.6 % (11.7-14.2); RDW Standard Deviation 46.1 fL (35.1-46.3); Red Blood Cell Count 2.95 M/mm3 (4.30-5.90); White Blood Cell Count 8.05 K/mm3 (4.00-11.30)
[2022-02-15 05:04] LABS: Bun/Creatinine Ratio 24.2 (12.0-20.0); Calcium, Blood 7.9 mg/dL (8.5-10.1); Creatinine, Blood 1.24 mg/dL (0.60-1.20); Potassium, Blood 5.7 mmol/L (3.5-5.5)
[2022-02-15] MEDS ORDERED: Percocet 5-3251 EACH PO (10:54)
[2022-02-15] MEDS ORDERED: INDO50 PO (10:55)
[2022-02-15] MEDS ORDERED: ELIQUIS2.5 MG PO (10:56)
--- NOTE | 2022-02-15 11:30 | NUR ---
DISCHARGE PATIENT CLEARED THERAPY, AMBULATING VERY WELL W/ FWW & GB. REPORTS PAIN TO BE MONIMAL AND MANAGED PER EMAR. EATING, DRINKING & VOIDING WELL. DISCUSSED DISCHARGE INSTRUCTIONS & SENT WITH PATIENT. ALSO SENT SCRIPTS, AQUACEL DRESSINGS, & POLAR PACK. ESCORTED OUT VIA W/C.
== END 2022-02-15 11:30 | disposition home or self-care (01) | DRG 522 ==
LOC: ER 11:42 → MEDS 12:53 → SURS 02-14 16:04
PROVIDERS: Orthopaedic Surgery; Physician Assistant; ADMIT Internal Medicine
PROC: 0SRB03Z Replacement of Left Hip Joint with Ceramic Synthetic Substitute, Open Approach (ICD-10-PCS; principal; 2022-02-14 12:00)
DX: S72.002A Fracture of unspecified part of neck of left femur, initial encounter for closed fracture (principal); E11.22 Type 2 diabetes mellitus with diabetic chronic kidney disease; N18.2 Chronic kidney disease, stage 2 (mild); M16.12 Unilateral primary osteoarthritis, left hip; J44.9 Chronic obstructive pulmonary disease, unspecified; B19.20 Unspecified viral hepatitis C without hepatic coma; F32.A Depression, unspecified; F41.9 Anxiety disorder, unspecified; F10.20 Alcohol dependence, uncomplicated; F15.10 Other stimulant abuse, uncomplicated; F17.210 Nicotine dependence, cigarettes, uncomplicated; I10 Essential (primary) hypertension; W10.8XXA Fall (on) (from) other stairs and steps, initial encounter; Z86.14 Personal history of Methicillin resistant Staphylococcus aureus infection; Z86.73 Personal history of transient ischemic attack (TIA), and cerebral infarction without residual deficits; Z79.51 Long term (current) use of inhaled steroids; Z98.890 Other specified postprocedural states; Z79.811 Long term (current) use of aromatase inhibitors; Z79.899 Other long term (current) drug therapy; Z79.84 Long term (current) use of oral hypoglycemic drugs; Z79.4 Long term (current) use of insulin
CPT/HCPCS: 36415; 70450; 71045; 72170; 80048; 80053; 82947; 85025; 93005; 93010; 94640; 94664; 94760; 97110; 97116; 97161; 97165; 97530; 97535; A9270; C1776; J0171; J0690; J0735; J1100; J1170; J1885; J2250; J2270; J2405; J2550; J2704; J2795; J3010; J3370; J7030; J7120